=== PATIENT | female | born 1960 | race Caucasian/White ===

== ENCOUNTER 2016-07-03 07:51 | Emergency (ER) | payer MEDICARE ==
[~2016-07-03 07:51] MED LIST: ATARAX25 MG PO; ATENOLOL50 MG; ATIVAN1 MG PO; AUGMENTIN 875 M1 TA1 PO; BACTRIM DS 8001 TA1 PO; BACTRIM DS 8001 TAB; BACTROBAN2% TP; BACTROBAN21; CALCIUM500 MG; CIPRO500 MG PO; CLARITIN10 MG; CLINDAMYCIN HC300 MG PO; COLCHICINE0.6 MG PO; DARVOCET N 1001 TAB PO; FLEXERIL10 MG; GLIPIZIDE5 MG; IMITREX50 MG; KCL; LANTUS SOLOS100 U/M1; LASIX40 MG; METFORMIN1000 MG; MOTRIN800 MG; NAPROSYN500 MG PO; ORPHENADRINE C100 M1 PO; PEPCID20 MG; SILVADENE1%; TORADOL10 MG PO; ULTRAM50 MG; XANAX0.5 MG; ZOLOFT50 MG
[2016-07-03] MEDS ORDERED: KEFLEX500 M1 PO (09:05)
== END 2016-07-03 09:01 | disposition home or self-care (01) ==
LOC: ED 07:51
DX: S81.812A Laceration without foreign body, left lower leg, initial encounter (principal); Z98.890 Other specified postprocedural states; Z98.51 Tubal ligation status; Z88.2 Allergy status to sulfonamides; Z88.6 Allergy status to analgesic agent; Z88.1 Allergy status to other antibiotic agents; Z88.4 Allergy status to anesthetic agent; W01.198A Fall on same level from slipping, tripping and stumbling with subsequent striking against other object, initial encounter; Y93.89 Activity, other specified; Y92.89 Other specified places as the place of occurrence of the external cause; Y99.9 Unspecified external cause status

== ENCOUNTER → 2016-09-09 | Outpatient (CLI) | payer MEDICARE ==
[~2016-09-09] MED LIST changes: +KEFLEX500 M1 PO
== END | disposition home or self-care (01) ==
LOC: LAB 16:54
DX: D64.9 Anemia, unspecified (principal)

== ENCOUNTER 2016-11-19 16:27 | Emergency (ER) | payer MEDICARE ==
[~2016-11-19] VITALS: Ht 167.6 cm; Wt 140.2 kg
[~2016-11-19 16:27] MED LIST changes: -CLARITIN10 MG; +CLARITIN10 MG PO; -IMITREX50 MG; +IMITREX50 MG PO; -LANTUS SOLOS100 U/M1; +LANTUS SOLOS100 U/M1 SQ; -LASIX40 MG; +LASIX40 MG PO; -METFORMIN1000 MG; +METFORMIN1000 MG PO; -PEPCID20 MG; +PEPCID20 MG PO; -ULTRAM50 MG; +ULTRAM50 MG PO
[2016-11-19] MEDS ORDERED: SEPTRA DS 800 M1 TAB PO (16:35)
[2016-11-19] MEDS ORDERED: BACTRIM DS 8001 TA1 PO (17:19)
== END 2016-11-19 17:40 | disposition home or self-care (01) ==
LOC: ED 16:27
DX: L02.01 Cutaneous abscess of face (principal); L03.211 Cellulitis of face; Z98.890 Other specified postprocedural states; Z98.51 Tubal ligation status; Z79.899 Other long term (current) drug therapy; Z88.2 Allergy status to sulfonamides; Z88.6 Allergy status to analgesic agent; Z88.1 Allergy status to other antibiotic agents; Z88.8 Allergy status to other drugs, medicaments and biological substances; Z86.14 Personal history of Methicillin resistant Staphylococcus aureus infection

== ENCOUNTER 2016-11-21 13:28 | Inpatient (IN) | payer MEDICARE ==
[~2016-11-21] VITALS: Ht 167.6 cm; Wt 145.6 kg
--- NOTE | ~2016-11-21 | CON ---
[place], [place] REPORT OF CONSULTATION [id number] #: [id number] ROOM: 424 DOCTOR: UBALDO STAPLETON,SEPTEMBER BIRTHDATE: [birth year] DOS: 11/21/2016 HISTORY OF PRESENT ILLNESS: The patient is a 56-year-old morbidly obese female who was admitted with lip and facial swelling as well as abscess of the left posterior upper thigh. She has attempted to pick at her skin. She has had other recurrent abscesses. In July, she had abscess of her left arm I and D'ed by her family doctor. Cultures are in the systems and grew MRSA. She has already had an MRSA swab of her nares. Blood cultures are pending. Wound culture was obtained from the face, that is pending. She denies any fevers or chills. Just swelling, pain and redness of her lower lip, especially on the left down to the chin. Over the last 3 days, it has been progressively worsening. They did give her Bactrim for that, which has been ineffective. PAST MEDICAL HISTORY: As above as well as morbid obesity, hypertension, diabetes, Achilles tendon repair, tubal ligation. SOCIAL HISTORY: Nonsmoker, nondrinker, no illicit drug use. Lives alone. FAMILY MEDICAL HISTORY: Father at the age of 55 from lung cancer. Mother with cardiac aneurysm at the age of 45. ALLERGIES: Listed includes SULFA, ASPIRIN, CODEINE, INSULIN, VICTOZA, AVELOX, PREDNISONE, PROPRANOLOL. CURRENT MEDICATIONS: Include vancomycin, Unasyn, Dulcolax. Clindamycin was stopped. LABORATORY DATA: Show lactic acid 1.8. WBC is 11.0. BUN 15, creatinine 0.81. AST 53, ALT 69, lactic acid 2.4, glucose 339. REVIEW OF SYSTEMS: As above in history of present illness. Again, she has some chronic skin picking for years. No cough or shortness of breath. No rash or itch. No recent fevers or shaking chills. No edema. She is morbidly obese, diabetic. Further review of systems is unremarkable. PHYSICAL EXAMINATION: VITAL SIGNS: Temperature 98.4, pulse 72, respirations 16, BP 136/74. GENERAL: A 56-year-old morbidly obese female in no acute distress. HEAD, EYES, EARS, NOSE AND THROAT: Normocephalic. No thrush. She wears upper and lower dentures and has been having no issues with her gums. LUNGS: Clear to auscultation bilaterally. Respirations even and unlabored. HEART: Regular rhythm. No murmur appreciated. ABDOMEN: Soft, obese, nontender. EXTREMITIES: No edema, deformity or cyanosis. SKIN: Multiple areas where she picks. Left upper posterior thigh, she has a small abscess, redness, induration. She also has cellulitic/abscess area of the lower lip, primarily on the left, which extends down to her chin. No open area. Significant tenderness. [place], [place] REPORT OF CONSULTATION NAME: LAWSON REYES UNIT #: [id number] ROOM: [facility] DOCTOR: UBALDO STAPLETONSEPTEMBER BIRTHDATE: [birth year] ASSESSMENT: Recurrent skin abscesses with Methicillin-resistant Staphylococcus aureus with now facial abscess and a left posterior upper thigh abscess. PLAN: I discussed with her methods for decolonization including Bactroban to her nares 3 times a day for 1 week out of each month for 3 months, showering with liquid antibacterial soaps. She needs to stop picking, but it is especially imperative for her to decolonize with that habit. No loofahs, no bath brushes, no sponges, fresh washed cloth and towel with each shower, not rewearing any of her clothes, changing her bed linen twice a week, etc. We discussed pathogenesis of MRSA. Stop the Unasyn, continue the vancomycin. Case discussed with Dr. Devyn Yuan. SEPTEMBER DAYA CONNER DEVYN YUAN MD CM:CONSTR:REPORT OF CONSULTATION 30 11/22/16 3607 interface
--- NOTE | ~2016-11-21 | CON ---
[place], [place] REPORT OF CONSULTATION NAME: LAWSON REYES UNIT #: [id number] ROOM: 424 DOCTOR: SRAVANI TRENTKIRK BIRTHDATE: [birth year] DOS: 11/25/2016 LOCATION: Room 4241. The patient is on the hospice service. ADMITTING PHYSICIAN: Ashley Roldan CNP REASON FOR CONSULTATION: Facial cellulitis. HISTORY OF PRESENT ILLNESS: The patient is a 56-year-old do white female who was admitted to [facility] approximately 1 week ago because of lip and facial swelling in area of the chin. She also had some evidence of infection in the left posterior upper. Thigh. The patient has a history of recurrent MRSA and frequently picks at her skin. Cultures have demonstrated methicillin-resistant Staphylococcus aureus and the patient has been treated with IV vancomycin. She is clinically improving and her white blood cell count has normalized. I have been asked to evaluate the patient because of the infection and swelling involving the lower lip and chin. PAST MEDICAL HISTORY: Hypertension, diabetes mellitus, morbid obesity. PAST SURGICAL HISTORY: Tubal ligation, Achilles tendon repair. CURRENT MEDICATIONS: Vitamin D, vitamin B12, IV vancomycin, potassium, Claritin, Lasix, ferrous sulfate, Pepcid, Lovenox, Os-Odilon, Tenormin, Bactroban ointment, Mobic, insulin, Flexeril, Xanax, Ultram. ALLERGIES: CODEINE, ASPIRIN, PREDNISONE, TRIMETHOPRIM, PROPRANOLOL. PHYSICAL EXAMINATION: GENERAL: The patient was examined at the bedside. VITAL SIGNS: She is afebrile. Temperature 98.3 oral, pulse 111, respiratory rate 20, blood pressure 122/60. HEENT: The ears are clear. Nose shows no mucopurulence. The oral cavity and oropharynx are unremarkable. Examination of lower lip and left lateral chain shows some excoriated skin consistent with recent cellulitis. There is no drainable fluid collection. The patient's infection appears to be responding to the IV vancomycin. There is still mild tenderness. IMPRESSION: Methicillin-resistant Staphylococcus aureus cellulitis of face. RECOMMENDATIONS: Continue IV vancomycin, continue application of Bactroban ointment to facial infection twice daily. There is no need for surgical intervention on this patient. [place], [place] REPORT OF CONSULTATION NAME: JOSIANELAWSON PATTEN UNIT #: [id number] ROOM: 424 DOCTOR: KIRK LASSITER MD BIRTHDATE: [birth year] KIRK LASSITER MD CM:CONSTR:REPORT OF CONSULTATION 1527 11/25/16 1648 interface
--- NOTE | ~2016-11-21 | PR ---
[place], [place] PROGRESS NOTE NAME: LAWSON REYES [facility] #: [id number] UNIT #: [id number] ROOM: 424 DOCTOR: UBALDO STAPLETON,SEPTEMBER BIRTHDATE: [birth year] DOS: SUBJECTIVE: The patient is being followed for facial abscess on her lower lip, which extends to her chin. She was seen by Dr. Lovell, who would prefer that an ENT be consulted for an I and D of the abscess. She also has one on her left upper posterior thigh. The patient has skin picking disorder and has been picking at both of them; however, they do still appear to need to be lanced. She is currently on IV vancomycin, which she is tolerating without issue. Denies fevers, chills, nausea, vomiting or diarrhea. No rash or itch. No cough or shortness of breath. CURRENT MEDICATIONS: Include vancomycin, potassium, Claritin, Lasix, Feosol, Pepcid, Lovenox, Os-Odilon, Tenormin, Bactroban to her nose, Mobic, Humalog, Levemir, Lexapro, Flexeril, Xanax, Ultram, Imitrex and Zofran. LABORATORY DATA: Yesterday, WBCs were down to 10, platelets 287. Yesterday, BUN 12, creatinine 0.68. Her hemoglobin A1c is 9.9. Vancomycin trough is 15.2. MRSA screen of the nares was positive as was the abscess cultures from the chin. PHYSICAL EXAMINATION: VITAL SIGNS: Temperature 97.7, pulse 68, respirations 20, BP 129/80. GENERAL: Alert and oriented 56-year-old morbidly obese female, in no acute distress. HEAD, EYES, EARS, NOSE AND THROAT: Normocephalic, no thrush. Again, she has got erythema, induration and abscess of the lower lip to the left, down to her chin. LUNGS: Clear to auscultation bilaterally. Respirations even and unlabored. HEART: Regular rhythm. No murmur appreciated. ABDOMEN: Soft, obese, nontender. EXTREMITIES: No edema or deformity. Left upper posterior thigh with redness and induration. She has attempted to pick at it, but not very successfully. SKIN: Otherwise, warm, dry, has numerous areas where she has picked at her skin. ASSESSMENT: Methicillin-resistant Staphylococcus aureus abscesses, which have been recurrent, now currently of her lip/chin as well as left upper posterior thigh. An ENT is to see her hopefully for an I and D of the lip/chin abscess. PLAN: Continue the vancomycin. I have discussed with her in detail MRSA de-colonization. She has Bactroban to the nares currently, this is especially important given her skin picking habit and I discussed with the nurses and will began chlorhexidine baths. Case was discussed with Dr. Devyn Yuan. SAHIL DAYA CONNER [place], [place] PROGRESS NOTE NAME: AMYLAWSON UNIT #: [id number] ROOM: [facility] DOCTOR: UBALDO STAPLETON BIRTHDATE: [birth year] DEVYN YUAN MD CM:PNTRANS 1625 [id number] SEPTEMBER UBALDO STAPLETON 11/24/16 0041 interface
--- NOTE | ~2016-11-21 | CON ---
[place], [place] REPORT OF CONSULTATION NAME: LAWSON REYES UNIT #: [id number] ROOM: 424 DOCTOR: LISSY TRENT,DEVYN Sifuentes BIRTHDATE: [birth year] DOS: 11/21/2016 ADDENDUM I agree with the plan as outlined above after reviewing the labs, radiographs and cultures. We will make adjustments accordingly and follow the patient up clinically. DEVYN YUAN MD CM:CONSTR:REPORT OF CONSULTATION 1739 11/24/16 1253 interface
--- NOTE | ~2016-11-21 | PR ---
[place], [place] PROGRESS NOTE NAME: LAWSON REYES UNIT #: [id number] ROOM: 424 DOCTOR: LISSY TRENT,DEVYN Sifuentes BIRTHDATE: [birth year] DOS: 11/23/2016 ADDENDUM: I agree with above plans as described. We will follow the patient up clinically and make appropriate adjustments accordingly. DEVYN YUAN MD CM:PNTRANS [id number] DEVYN YUAN MD 11/23/16 1852 interface
[~2016-11-21 13:28] MED LIST changes: +SEPTRA DS 800 M1 TAB PO
[2016-11-21 13:42] VITALS: BP 142/73
[2016-11-21] MEDS ORDERED: FEROSUL325 MG PO (13:43)
[2016-11-21 14:36] LABS: BASO % 0.4 % (0.0-1.0); EOS # 0.2 10*3/uL (0.0-0.4); EOS % 1.9 % (1.0-4.0); HEMATOCRIT 39.5 % (37.0-47.0); HEMOGLOBIN 12.8 g/dl (12.0-16.0); LYMPH # 2.5 10*3/uL (1.3-4.4); LYMPH % 22.3 % (27.0-41.0); MEAN CELL VOLUME 93.8 fl (81.0-99.0); MEAN CORPUSCULAR HGB 30.4 pg (27.0-31.0); MEAN CORPUSCULAR HGB CONC 32.4 g/dl (33.0-37.0); MEAN PLATELET VOLUME 10.2 fl (9.6-12.3); MONO # 0.6 10*3/uL (0.1-1.0); MONO % 5.7 % (3.0-9.0); NEUT # 7.6 10*3/uL (2.3-7.9); NEUT % 69.3 % (47.0-73.0); PLATELET COUNT AUTOMATED 276 10*3/uL (130-400); RED BLOOD COUNT 4.21 10*6/uL (4.10-5.10); RED CELL DISTRI WIDTH 12.9 % (0-14.5)
[2016-11-21 14:52] LABS: ALBUMIN 2.8 gm/dl (3.1-4.5); ALKALINE PHOSPHATASE 104 U/L (45-117); BILIRUBIN, TOTAL 0.4 mg/dl (0.2-1.0); BUN 15 mg/dl (7-24); CARBON DIOXIDE 24 mmol/L (21-32); CHLORIDE 104 mmol/L (98-107); EST GLOM FILT AFRICAN AMERICAN > 60 ml/min; GLUCOSE 339 mg/dL (65-99); POTASSIUM 4.6 mmol/L (3.5-5.1); SGOT/AST 53 IU/L (3-35); SGPT/ALT 69 U/L (12-78); SODIUM 137 mmol/L (136-145); TOTAL PROTEIN 7.6 gm/dL (6.4-8.2)
[2016-11-21 15:06] VITALS: BP 132/72
[2016-11-21 16:22] VITALS: BP 136/74
[2016-11-21 16:29] LABS: LA>2 REFLEX 2 HR DRAW NOW
[2016-11-21] MEDS ORDERED: XANAX1 MG PO (17:26)
[2016-11-21] MEDS ORDERED: TENORMIN50 MG PO (17:27)
[2016-11-21] MEDS ORDERED: MOBIC7.5 MG PO (17:28)
[2016-11-21] MEDS ORDERED: LEXAPRO10 MG PO (17:28)
[2016-11-21] MEDS ORDERED: OYSTER SHELL C1 EAC3 PO (17:30)
[2016-11-21] MEDS ORDERED: CYCLOBENZAPRINE10 MG PO (17:31)
[2016-11-21] MEDS ORDERED: POTASSIUM CHLO10 ME4 PO (17:40)
[2016-11-21] MEDS ORDERED: GLIPIZIDE10 M2 PO (17:42)
[2016-11-21 20:00] VITALS: BP 137/81
[2016-11-22] VITALS: BP 143/90
[2016-11-22 05:58] LABS: BASO # 0.1 10*3/uL (0.0-0.1); BASO % 0.6 % (0.0-1.0); EOS # 0.3 10*3/uL (0.0-0.4); EOS % 3.1 % (1.0-4.0); HEMATOCRIT 38.1 % (37.0-47.0); LYMPH # 3.3 10*3/uL (1.3-4.4); LYMPH % 32.8 % (27.0-41.0); MEAN CELL VOLUME 94.5 fl (81.0-99.0); MEAN CORPUSCULAR HGB 29.8 pg (27.0-31.0); MEAN CORPUSCULAR HGB CONC 31.5 g/dl (33.0-37.0); MEAN PLATELET VOLUME 10.8 fl (9.6-12.3); MONO # 0.7 10*3/uL (0.1-1.0); MONO % 7.3 % (3.0-9.0); NEUT # 5.6 10*3/uL (2.3-7.9); NEUT % 55.9 % (47.0-73.0); PLATELET COUNT AUTOMATED 287 10*3/uL (130-400); RED BLOOD COUNT 4.03 10*6/uL (4.10-5.10); RED CELL DISTRI WIDTH 12.8 % (0-14.5)
[2016-11-22 06:00] LABS: HEMOGLOBIN A1c 9.9 % (4.8-5.6)
[2016-11-22 06:16] LABS: ALBUMIN 2.8 gm/dl (3.1-4.5); ALKALINE PHOSPHATASE 100 U/L (45-117); BILIRUBIN, TOTAL 0.2 mg/dl (0.2-1.0); BUN 12 mg/dl (7-24); CARBON DIOXIDE 28 mmol/L (21-32); CHLORIDE 103 mmol/L (98-107); EST GLOM FILT AFRICAN AMERICAN > 60 ml/min; FREE T4 1.21 ng/dl (0.76-1.46); GLUCOSE 204 mg/dL (65-99); PHOSPHOROUS 4.5 mg/dL (2.5-4.9); SGOT/AST 51 IU/L (3-35); SGPT/ALT 61 U/L (12-78); SODIUM 137 mmol/L (136-145); TOTAL PROTEIN 7.3 gm/dL (6.4-8.2)
[2016-11-22 06:18] LABS: PROTHROMBIN TIME 10.6 SECONDS (9.0-12.4)
[2016-11-22 06:24] LABS: VITAMIN D, 25-HYDROXY 22.3 ng/mL (30-100)
[2016-11-22 06:25] LABS: FOLIC ACID 9.6 ng/mL (>5.38)
[2016-11-22 08:00] VITALS: BP 118/64
[2016-11-22 12:00] VITALS: BP 110/61
[2016-11-22 16:00] VITALS: BP 125/90
[2016-11-22 20:00] VITALS: BP 144/69
[2016-11-23] VITALS: BP 98/72
[2016-11-23 08:00] VITALS: BP 118/72; BP 128/72
[2016-11-23 12:00] VITALS: BP 129/80
[2016-11-23 16:00] VITALS: BP 119/70
[2016-11-23 20:00] VITALS: BP 110/91
[2016-11-24 01:43] VITALS: BP 146/88
[2016-11-24 06:17] LABS: BASO # 0.1 10*3/uL (0.0-0.1); BASO % 0.7 % (0.0-1.0); EOS # 0.2 10*3/uL (0.0-0.4); EOS % 2.4 % (1.0-4.0); HEMATOCRIT 39.7 % (37.0-47.0); HEMOGLOBIN 13.2 g/dl (12.0-16.0); LYMPH # 3.6 10*3/uL (1.3-4.4); LYMPH % 37.1 % (27.0-41.0); MEAN CELL VOLUME 90.8 fl (81.0-99.0); MEAN CORPUSCULAR HGB 30.2 pg (27.0-31.0); MEAN CORPUSCULAR HGB CONC 33.2 g/dl (33.0-37.0); MEAN PLATELET VOLUME 10.5 fl (9.6-12.3); MONO # 0.7 10*3/uL (0.1-1.0); MONO % 7.2 % (3.0-9.0); NEUT % 52.3 % (47.0-73.0); PLATELET COUNT AUTOMATED 313 10*3/uL (130-400); RED BLOOD COUNT 4.37 10*6/uL (4.10-5.10); RED CELL DISTRI WIDTH 12.5 % (0-14.5); WHITE BLOOD COUNT 9.6 10*3/uL (4.8-10.8)
[2016-11-24 06:39] LABS: BUN 14 mg/dl (7-24); CARBON DIOXIDE 30 mmol/L (21-32); CHLORIDE 96 mmol/L (98-107); EST GLOM FILT AFRICAN AMERICAN > 60 ml/min; GLUCOSE 322 mg/dL (65-99); POTASSIUM 3.9 mmol/L (3.5-5.1); SODIUM 136 mmol/L (136-145)
[2016-11-24 08:00] VITALS: BP 114/79
[2016-11-24 12:00] VITALS: BP 105/55
[2016-11-24 16:00] VITALS: BP 111/76
[2016-11-24 20:00] VITALS: BP 127/78
[2016-11-25] VITALS: BP 99/43
[2016-11-25 07:59] VITALS: BP 118/56
[2016-11-25 12:00] VITALS: BP 122/60
[2016-11-25] MEDS ORDERED: BACTROBAN NASAL1 GM NS (15:23)
[2016-11-25] MEDS ORDERED: DOXYCYCLINE100 MG PO (15:23)
[2016-11-25] MEDS ORDERED: [UNRECOGNIZED DRUG - CODE] TP (15:25)
[2016-11-25 16:00] VITALS: BP 118/75
[2016-11-25 20:00] VITALS: BP 136/82
[2016-11-26] VITALS: BP 105/76
[2016-11-26 07:24] LABS: BASO # 0.1 10*3/uL (0.0-0.1); BASO % 0.6 % (0.0-1.0); EOS # 0.3 10*3/uL (0.0-0.4); EOS % 3.4 % (1.0-4.0); HEMATOCRIT 37.5 % (37.0-47.0); HEMOGLOBIN 12.4 g/dl (12.0-16.0); LYMPH # 3.3 10*3/uL (1.3-4.4); LYMPH % 41.5 % (27.0-41.0); MEAN CELL VOLUME 93.3 fl (81.0-99.0); MEAN CORPUSCULAR HGB 30.8 pg (27.0-31.0); MEAN CORPUSCULAR HGB CONC 33.1 g/dl (33.0-37.0); MEAN PLATELET VOLUME 10.3 fl (9.6-12.3); MONO # 0.5 10*3/uL (0.1-1.0); NEUT # 3.9 10*3/uL (2.3-7.9); NEUT % 48.3 % (47.0-73.0); NUCLEATED RED BLOOD CELL 0.2 % (0.0-0.0); PLATELET COUNT AUTOMATED 282 10*3/uL (130-400); RED BLOOD COUNT 4.02 10*6/uL (4.10-5.10); RED CELL DISTRI WIDTH 12.5 % (0-14.5)
[2016-11-26 08:00] VITALS: BP 128/72
[2016-11-26 08:21] LABS: BUN 12 mg/dl (7-24); CARBON DIOXIDE 28 mmol/L (21-32); CHLORIDE 98 mmol/L (98-107); EST GLOM FILT AFRICAN AMERICAN > 60 ml/min; GLUCOSE 368 mg/dL (65-99); SODIUM 134 mmol/L (136-145)
== END 2016-11-26 13:29 | disposition home or self-care (01) | DRG 602 ==
LOC: ED 13:28 → 4E 16:39 → EDHOLD 16:39 → 4E 16:45
PROVIDERS: Family Medicine; Hospitalist; Internal Medicine; Physician Assistant
DX: L03.211 Cellulitis of face (principal); E43 Unspecified severe protein-calorie malnutrition; L02.01 Cutaneous abscess of face; Z68.43 Body mass index [BMI] 50.0-59.9, adult; L02.416 Cutaneous abscess of left lower limb; E11.65 Type 2 diabetes mellitus with hyperglycemia; I10 Essential (primary) hypertension; K13.0 Diseases of lips; B95.62 Methicillin resistant Staphylococcus aureus infection as the cause of diseases classified elsewhere; E66.01 Morbid (severe) obesity due to excess calories; E55.9 Vitamin D deficiency, unspecified; Z88.2 Allergy status to sulfonamides; Z88.8 Allergy status to other drugs, medicaments and biological substances; Z88.6 Allergy status to analgesic agent; Z88.5 Allergy status to narcotic agent; Z88.1 Allergy status to other antibiotic agents; Z98.51 Tubal ligation status; Z82.49 Family history of ischemic heart disease and other diseases of the circulatory system; Z85.118 Personal history of other malignant neoplasm of bronchus and lung; Z79.4 Long term (current) use of insulin; Z79.899 Other long term (current) drug therapy

== ENCOUNTER 2017-04-23 22:07 | Emergency (ER) | payer MEDICAID ==
[~2017-04-23] VITALS: Ht 165.1 cm; Wt 158.8 kg
[~2017-04-23 22:07] MED LIST changes: +BACTROBAN NASAL1 GM NS; +CYCLOBENZAPRINE10 MG PO; +DOXYCYCLINE100 MG PO; +FEROSUL325 MG PO; +GLIPIZIDE10 M2 PO; +LEXAPRO10 MG PO; +MOBIC7.5 MG PO; +OYSTER SHELL C1 EAC3 PO; +POTASSIUM CHLO10 ME4 PO; +TENORMIN50 MG PO; +XANAX1 MG PO; +[UNRECOGNIZED DRUG - CODE] TP
[2017-04-23 23:29] LABS: BASO # 0.1 10*3/uL (0.0-0.1); BASO % 0.5 % (0.0-1.0); EOS # 0.2 10*3/uL (0.0-0.4); EOS % 1.9 % (1.0-4.0); HEMATOCRIT 38.7 % (37.0-47.0); LYMPH # 3.4 10*3/uL (1.3-4.4); LYMPH % 32.1 % (27.0-41.0); MEAN CELL VOLUME 91.1 fl (81.0-99.0); MEAN CORPUSCULAR HGB 30.6 pg (27.0-31.0); MEAN CORPUSCULAR HGB CONC 33.6 g/dl (33.0-37.0); MEAN PLATELET VOLUME 10.1 fl (9.6-12.3); MONO # 0.7 10*3/uL (0.1-1.0); MONO % 6.6 % (3.0-9.0); NEUT # 6.2 10*3/uL (2.3-7.9); NEUT % 58.6 % (47.0-73.0); PLATELET COUNT AUTOMATED 292 10*3/uL (130-400); RED BLOOD COUNT 4.25 10*6/uL (4.10-5.10); RED CELL DISTRI WIDTH 12.1 % (0-14.5); WHITE BLOOD COUNT 10.6 10*3/uL (4.8-10.8)
[2017-04-23 23:45] LABS: ALKALINE PHOSPHATASE 103 U/L (45-117); BUN 12 mg/dl (7-24); CHLORIDE 103 mmol/L (98-107); CREATININE 0.83 mg/dL (0.55-1.02); POTASSIUM 4.1 mmol/L (3.5-5.1); SGOT/AST 42 IU/L (3-35); SGPT/ALT 51 U/L (12-78); SODIUM 136 mmol/L (136-145)
[2017-04-24] MEDS ORDERED: CLINDAMYCIN HC300 MG PO (00:16)
== END 2017-04-23 22:43 | disposition home or self-care (01) ==
LOC: ED 22:07
PROVIDERS: Physician Assistant
DX: L03.211 Cellulitis of face (principal); E11.9 Type 2 diabetes mellitus without complications; Z98.51 Tubal ligation status; Z98.890 Other specified postprocedural states; Z79.899 Other long term (current) drug therapy; Z79.4 Long term (current) use of insulin; Z88.6 Allergy status to analgesic agent; Z88.5 Allergy status to narcotic agent; Z88.8 Allergy status to other drugs, medicaments and biological substances

== ENCOUNTER → 2017-06-24 | Outpatient (CLI) | payer MEDICARE, MEDICAID ==
[2017-06-24 16:01] LABS: BASO # 0.1 10*3/uL (0.0-0.1); BASO % 0.7 % (0.0-1.0); EOS # 0.3 10*3/uL (0.0-0.4); EOS % 3.4 % (1.0-4.0); HEMATOCRIT 36.4 % (37.0-47.0); HEMOGLOBIN 12.2 g/dl (12.0-16.0); LYMPH # 2.5 10*3/uL (1.3-4.4); LYMPH % 32.3 % (27.0-41.0); MEAN CELL VOLUME 92.4 fl (81.0-99.0); MEAN CORPUSCULAR HGB CONC 33.5 g/dl (33.0-37.0); MEAN PLATELET VOLUME 10.8 fl (9.6-12.3); MONO # 0.4 10*3/uL (0.1-1.0); NEUT # 4.5 10*3/uL (2.3-7.9); NEUT % 58.2 % (47.0-73.0); PLATELET COUNT AUTOMATED 235 10*3/uL (130-400); RED BLOOD COUNT 3.94 10*6/uL (4.10-5.10); RED CELL DISTRI WIDTH 12.2 % (0-14.5); WHITE BLOOD COUNT 7.7 10*3/uL (4.8-10.8)
[2017-06-24 16:18] LABS: ALBUMIN 2.7 gm/dl (3.1-4.5); ALKALINE PHOSPHATASE 97 U/L (45-117); BUN 12 mg/dl (7-24); CHLORIDE 100 mmol/L (98-107); CREATININE 0.76 mg/dL (0.55-1.02); POTASSIUM 3.7 mmol/L (3.5-5.1); SGOT/AST 36 IU/L (3-35); SGPT/ALT 46 U/L (12-78); SODIUM 136 mmol/L (136-145)
== END | disposition home or self-care (01) ==
LOC: MRI 14:00 → LAB 14:15 → MRI 14:15
PROVIDERS: Internal Medicine
DX: M47.896 Other spondylosis, lumbar region (principal); M47.897 Other spondylosis, lumbosacral region; M51.26 Other intervertebral disc displacement, lumbar region; E78.2 Mixed hyperlipidemia; E03.9 Hypothyroidism, unspecified; E11.42 Type 2 diabetes mellitus with diabetic polyneuropathy; M54.2 Cervicalgia

== ENCOUNTER 2017-07-07 20:29 | Inpatient (IN) | payer MEDICARE, MEDICAID ==
[~2017-07-07] VITALS: Ht 167.6 cm; Wt 138.3 kg
--- NOTE | ~2017-07-07 | PROC NOTE ---
[place], [place] PROCEDURE NOTE NAME: LAWSON REYES [facility] #: [id number] UNIT #: [id number] ROOM: 531 DOCTOR: AVELINO LANGLEY MD BIRTHDATE: [birth year] DOS: 07/08/2017 PREOPERATIVE DIAGNOSIS: Right neck abscess. POSTOPERATIVE DIAGNOSIS: Right neck abscess. PROCEDURE: Incision and drainage of right neck abscess. SURGEON: Avelino Langley MD BOTTLE TESTER: DONNA. ANESTHESIA: Local (1% plain lidocaine). INDICATIONS: This is a 57-year-old lady with a history of an abscess in the right neck, was here for the above-mentioned procedure. The procedure and its complications were explained to the patient in detail preoperatively. Complications that were discussed included but were not limited to bleeding, infection, hematoma/seroma/abscess formation, prolonged postoperative pain, and damage to underlying vital structures. She agreed to proceed. DESCRIPTION OF PROCEDURE: After identifying the patient, the patient was brought to the operating suite and laid in the supine position. After time-out procedure was called, the parts were painted and draped in the usual sterile fashion and local anesthesia was infiltrated over the abscess cavity. The incision was made and the abscess cavity was entered and approximately 2 to 3 mL of pus was aspirated. The specimen was sent for culture and sensitivity. Thereafter, the abscess cavity was irrigated and packed with quarter inch iodoform and a dressing was placed. The patient tolerated the procedure well and was taken to the recovery room in a stable fashion. Dr. Avelino Langley, the attending surgeon, was present throughout the operating case. Avelino Langley MD CM:PROCNOTE:PROCEDURE NOTE [phone] AVELINO LANGLEY MD
[2017-07-07 20:36] VITALS: BP 134/80
[2017-07-07 21:30] LABS: BASO # 0.1 10*3/uL (0.0-0.1); BASO % 0.4 % (0.0-1.0); EOS # 0.1 10*3/uL (0.0-0.4); HEMATOCRIT 41.8 % (37.0-47.0); LYMPH # 2.9 10*3/uL (1.3-4.4); LYMPH % 21.3 % (27.0-41.0); MEAN CELL VOLUME 91.7 fl (81.0-99.0); MEAN CORPUSCULAR HGB 30.7 pg (27.0-31.0); MEAN CORPUSCULAR HGB CONC 33.5 g/dl (33.0-37.0); MEAN PLATELET VOLUME 10.7 fl (9.6-12.3); MONO # 0.7 10*3/uL (0.1-1.0); MONO % 4.8 % (3.0-9.0); NEUT # 9.9 10*3/uL (2.3-7.9); NEUT % 72.2 % (47.0-73.0); PLATELET COUNT AUTOMATED 279 10*3/uL (130-400); RED BLOOD COUNT 4.56 10*6/uL (4.10-5.10); RED CELL DISTRI WIDTH 12.4 % (0-14.5); WHITE BLOOD COUNT 13.7 10*3/uL (4.8-10.8)
[2017-07-07 21:46] LABS: ALKALINE PHOSPHATASE 114 U/L (45-117); BUN 10 mg/dl (7-24); CHLORIDE 99 mmol/L (98-107); CREATININE 0.94 mg/dL (0.55-1.02); POTASSIUM 4.2 mmol/L (3.5-5.1); SGOT/AST 35 IU/L (3-35); SGPT/ALT 55 U/L (12-78); SODIUM 131 mmol/L (136-145); TOTAL PROTEIN 8.2 gm/dL (6.4-8.2)
[2017-07-07] MEDS ORDERED: Motrin,Rufen800 MG PO (23:29)
[2017-07-07] MEDS ORDERED: IMITREX50 MG PO (23:30)
[2017-07-07] MEDS ORDERED: KLONOPIN1 M1 PO (23:35)
[2017-07-07] MEDS ORDERED: TRAD5TAB1 PO (23:36)
[2017-07-08] VITALS (7 sets, daily range): BP systolic 106–128; BP diastolic 56–85
[2017-07-08 06:21] LABS: BASO # 0.1 10*3/uL (0.0-0.1); BASO % 0.4 % (0.0-1.0); EOS # 0.3 10*3/uL (0.0-0.4); EOS % 1.9 % (1.0-4.0); HEMATOCRIT 38.8 % (37.0-47.0); HEMOGLOBIN 12.5 g/dl (12.0-16.0); LYMPH # 3.4 10*3/uL (1.3-4.4); LYMPH % 26.1 % (27.0-41.0); MEAN CELL VOLUME 93.9 fl (81.0-99.0); MEAN CORPUSCULAR HGB 30.3 pg (27.0-31.0); MEAN CORPUSCULAR HGB CONC 32.2 g/dl (33.0-37.0); MEAN PLATELET VOLUME 10.7 fl (9.6-12.3); MONO % 7.7 % (3.0-9.0); NEUT # 8.2 10*3/uL (2.3-7.9); NEUT % 63.5 % (47.0-73.0); PLATELET COUNT AUTOMATED 259 10*3/uL (130-400); RED BLOOD COUNT 4.13 10*6/uL (4.10-5.10); RED CELL DISTRI WIDTH 12.7 % (0-14.5); WHITE BLOOD COUNT 12.9 10*3/uL (4.8-10.8)
[2017-07-08 06:27] LABS: ALBUMIN 2.6 gm/dl (3.1-4.5); BUN 11 mg/dl (7-24); CHLORIDE 103 mmol/L (98-107); CHOLESTEROL 170 mg/dL (<200); CREATININE 0.81 mg/dL (0.55-1.02); POTASSIUM 4.1 mmol/L (3.5-5.1); SGOT/AST 26 IU/L (3-35); SGPT/ALT 45 U/L (12-78); SODIUM 137 mmol/L (136-145); TOTAL PROTEIN 7.1 gm/dL (6.4-8.2); TRIGLYCERIDES 113 mg/dl (<150); VLDL CHOLESTEROL 23 mg/dL (6-40)
[2017-07-08 06:34] LABS: ALKALINE PHOSPHATASE 98 U/L (45-117); HDL CHOLESTEROL 37 mg/dl (40-60); LDL CHOLESTEROL 110 mg/dL (9-159)
[2017-07-08 09:55] LABS: VITAMIN D, 25-HYDROXY 10.2 ng/mL (30-100)
[2017-07-08 16:27] LABS: BILIRUBIN NEGATIVE (NEGATIVE); BLOOD NEGATIVE (NEGATIVE); CLARITY CLEAR (CLEAR); COLOR YELLOW (YELLOW); GLUCOSE 3+ (NEGATIVE); KETONE NEGATIVE (NEGATIVE); LEUKO ESTERASE NEGATIVE (NEGATIVE); NITRITE NEGATIVE (NEGATIVE); PH 6.5 (5.0-9.0); UROBILINOGEN 0.2 E.U./dl (0.2-1.0)
[2017-07-08 16:37] LABS: EPITHELIAL CELLS 30-35; RBC 0-2 rbc/hpf (0-2); WBC 0-2 wbc/hpf (0-5)
[2017-07-08 16:38] LABS: BACTERIA TRACE
[2017-07-09 00:19] VITALS: BP 127/76
[2017-07-09 06:40] LABS: BASO % 0.5 % (0.0-1.0); EOS # 0.3 10*3/uL (0.0-0.4); EOS % 2.8 % (1.0-4.0); HEMATOCRIT 36.2 % (37.0-47.0); HEMOGLOBIN 11.8 g/dl (12.0-16.0); LYMPH # 2.9 10*3/uL (1.3-4.4); LYMPH % 32.5 % (27.0-41.0); MEAN CELL VOLUME 93.8 fl (81.0-99.0); MEAN CORPUSCULAR HGB 30.6 pg (27.0-31.0); MEAN CORPUSCULAR HGB CONC 32.6 g/dl (33.0-37.0); MEAN PLATELET VOLUME 10.6 fl (9.6-12.3); MONO # 0.6 10*3/uL (0.1-1.0); MONO % 6.5 % (3.0-9.0); NEUT # 5.1 10*3/uL (2.3-7.9); NEUT % 57.5 % (47.0-73.0); PLATELET COUNT AUTOMATED 230 10*3/uL (130-400); RED BLOOD COUNT 3.86 10*6/uL (4.10-5.10); RED CELL DISTRI WIDTH 12.5 % (0-14.5); WHITE BLOOD COUNT 8.8 10*3/uL (4.8-10.8)
[2017-07-09 06:53] LABS: BUN 10 mg/dl (7-24); CHLORIDE 104 mmol/L (98-107); CREATININE 0.75 mg/dL (0.55-1.02); SODIUM 138 mmol/L (136-145)
[2017-07-09 08:00] VITALS: BP 104/58
[2017-07-09 12:00] VITALS: BP 110/64
[2017-07-09 16:00] VITALS: BP 126/70
[2017-07-09] MEDS ORDERED: TOPAMAX25 M3 PO (20:57)
[2017-07-09] MEDS ORDERED: SYNTHROID25 MCG PO (21:00)
[2017-07-09 21:20] VITALS: BP 112/71
[2017-07-10] VITALS: BP 134/62
[2017-07-10 06:44] LABS: BASO % 0.5 % (0.0-1.0); EOS # 0.2 10*3/uL (0.0-0.4); EOS % 2.8 % (1.0-4.0); HEMATOCRIT 37.1 % (37.0-47.0); LYMPH % 38.7 % (27.0-41.0); MEAN CELL VOLUME 93.7 fl (81.0-99.0); MEAN CORPUSCULAR HGB 30.3 pg (27.0-31.0); MEAN CORPUSCULAR HGB CONC 32.3 g/dl (33.0-37.0); MONO # 0.6 10*3/uL (0.1-1.0); MONO % 7.2 % (3.0-9.0); NEUT % 50.5 % (47.0-73.0); PLATELET COUNT AUTOMATED 250 10*3/uL (130-400); RED BLOOD COUNT 3.96 10*6/uL (4.10-5.10); RED CELL DISTRI WIDTH 12.4 % (0-14.5); WHITE BLOOD COUNT 7.8 10*3/uL (4.8-10.8)
[2017-07-10 07:55] VITALS: BP 149/79
[2017-07-10 08:41] LABS: BUN 11 mg/dl (7-24); CHLORIDE 103 mmol/L (98-107); CREATININE 0.66 mg/dL (0.55-1.02); POTASSIUM 4.1 mmol/L (3.5-5.1); SODIUM 135 mmol/L (136-145)
[2017-07-10 11:28] VITALS: BP 114/64
[2017-07-10 18:00] VITALS: BP 126/66
[2017-07-10 20:00] VITALS: BP 129/81
[2017-07-11] VITALS: BP 128/66
[2017-07-11 08:00] VITALS: BP 120/64
[2017-07-11] MEDS ORDERED: Bactroban Oint22 GM T (13:30)
[2017-07-11] MEDS ORDERED: ANTISEPTIC SKI237 ML T (13:30)
[2017-07-11] MEDS ORDERED: SEPTDS PO (13:30)
[2017-07-11] MEDS ORDERED: NATURE'S BLEND F1 MG PO (13:33)
[2017-07-11] MEDS ORDERED: VITAMIN D-32000 UNIT PO (13:33)
[2017-07-11] MEDS ORDERED: LEVEMIR100 UNIT/1 SC (13:33)
[2017-07-11] MEDS ORDERED: LISINOPRIL5 MG PO (13:57)
[2017-07-11 16:00] VITALS: BP 97/52
== END 2017-07-11 17:51 | disposition home or self-care (01) | DRG 854 ==
LOC: ED 20:29 → EDHOLD 21:41 → 5E 22:08
PROVIDERS: Emergency Medicine Emergency Medical Services; Hospitalist; Internal Medicine Hospice and Palliative Medicine
PROC: 0W960ZZ Drainage of Neck, Open Approach (ICD-10-PCS; principal; 2017-07-08)
DX: A41.9 Sepsis, unspecified organism (principal); E87.2 Acidosis; E44.0 Moderate protein-calorie malnutrition; E11.65 Type 2 diabetes mellitus with hyperglycemia; E66.01 Morbid (severe) obesity due to excess calories; E87.1 Hypo-osmolality and hyponatremia; L03.221 Cellulitis of neck; L02.11 Cutaneous abscess of neck; Z68.42 Body mass index [BMI] 45.0-49.9, adult; I10 Essential (primary) hypertension; E53.8 Deficiency of other specified B group vitamins; B95.62 Methicillin resistant Staphylococcus aureus infection as the cause of diseases classified elsewhere; D64.9 Anemia, unspecified; R65.20 Severe sepsis without septic shock; F42.4 Excoriation (skin-picking) disorder; E55.9 Vitamin D deficiency, unspecified; Z79.4 Long term (current) use of insulin; Z79.899 Other long term (current) drug therapy; Z98.51 Tubal ligation status; Z88.6 Allergy status to analgesic agent; Z88.1 Allergy status to other antibiotic agents; Z88.5 Allergy status to narcotic agent; Z88.8 Allergy status to other drugs, medicaments and biological substances; Z80.1 Family history of malignant neoplasm of trachea, bronchus and lung; Z82.49 Family history of ischemic heart disease and other diseases of the circulatory system

== ENCOUNTER → 2017-08-04 | Outpatient (CLI) | payer MEDICARE, MEDICAID ==
[~2017-08-04] MED LIST changes: +ANTISEPTIC SKI237 ML T; +Bactroban Oint22 GM T; +KLONOPIN1 M1 PO; +LEVEMIR100 UNIT/1 SC; +LISINOPRIL5 MG PO; +Motrin,Rufen800 MG PO; +NATURE'S BLEND F1 MG PO; +SEPTDS PO; +SYNTHROID25 MCG PO; +TOPAMAX25 M3 PO; +TRAD5TAB1 PO; +VITAMIN D-32000 UNIT PO
== END | disposition home or self-care (01) ==
LOC: MAMMO 07-23 10:00
DX: Z12.31 Encounter for screening mammogram for malignant neoplasm of breast (principal)

== ENCOUNTER → 2017-09-22 | Outpatient (CLI) | payer MEDICARE, MEDICAID ==
[~2017-09-22] MED LIST changes: +LANTUS SOL100 UNIT/1 SC
--- NOTE | ~2017-09-22 | ST ---
[place], [place] EXERCISE STRESS TEST REPORT [id number] #: [id number] ROOM: DOCTOR: REVA LUI MD BIRTHDATE: [birth year] DOS: 09/22/2017 PHARMACOLOGIC STRESS TEST INDICATIONS: Chest pain. PROCEDURE: The patient was given a rapid infusion of 0.4 mg regadenoson intravenously followed by a saline flush. She experienced some burning at the injection site, but denied any respiratory or GI symptoms. Her resting electrocardiogram showed sinus rhythm with poor precordial R-wave progression, but no other acute changes. With the infusion, she had a normal increase in heart rate from 92-102 beats per minute, blood pressure fell from 120/64-104/60. No ST or T-wave changes were seen. Forty seconds after the infusion of regadenoson, she was given radionuclide intravenously. IMPRESSION: 1. Well tolerated infusion of regadenoson. 2. Radionuclide injected. Please see the separate imaging report for further details of the patient's stress test results. REVA LUI MD CM:STRESS:EXERCISE STRESS TEST REPORT [id number] REVA LUI MD
== END | disposition home or self-care (01) ==
LOC: CARD 03:41
DX: R07.89 Other chest pain (principal)

== ENCOUNTER → 2017-11-19 | Outpatient (CLI) | payer MEDICARE, MEDICAID ==
[~2017-11-19] MED LIST changes: +GLUCOPHAGE500 MG PO; +TRULICITY0.75 MG/0. SC; +ZESTRIL,PRINIVIL5 MG PO
== END | disposition home or self-care (01) ==
LOC: CARD 02:47
DX: R07.2 Precordial pain (principal); R89.9 Unspecified abnormal finding in specimens from other organs, systems and tissues

== ENCOUNTER → 2019-04-26 | Outpatient (CLI) | payer OTHER, MEDICAID ==
[~2019-04-26] MED LIST changes: +ANAPROX DS550 MG PO
[2019-04-26 15:15] LABS: BASO % 0.6 % (0.0-1.0); EOS # 0.2 10*3/uL (0.0-0.4); EOS % 2.9 % (1.0-4.0); HEMATOCRIT 40.7 % (37.0-47.0); HEMOGLOBIN 12.7 g/dl (12.0-16.0); LYMPH # 1.7 10*3/uL (1.3-4.4); LYMPH % 27.9 % (27.0-41.0); MEAN CELL VOLUME 100.7 fl (81.0-99.0); MEAN CORPUSCULAR HGB 31.4 pg (27.0-31.0); MEAN CORPUSCULAR HGB CONC 31.2 g/dl (33.0-37.0); MEAN PLATELET VOLUME 10.9 fl (9.6-12.3); MONO # 0.4 10*3/uL (0.1-1.0); MONO % 6.4 % (3.0-9.0); NEUT # 3.9 10*3/uL (2.3-7.9); NEUT % 61.9 % (47.0-73.0); PLATELET COUNT AUTOMATED 178 10*3/uL (130-400); RED BLOOD COUNT 4.04 10*6/uL (4.10-5.10); WHITE BLOOD COUNT 6.2 10*3/uL (4.8-10.8)
[2019-04-26 15:40] LABS: ALBUMIN 2.8 gm/dl (3.1-4.5); ALKALINE PHOSPHATASE 123 U/L (45-117); BUN 14 mg/dl (7-24); CHLORIDE 108 mmol/L (98-107); POTASSIUM 4.5 mmol/L (3.5-5.1); SGOT/AST 46 IU/L (3-35); SGPT/ALT 48 U/L (12-78); SODIUM 142 mmol/L (136-145); TOTAL PROTEIN 7.5 gm/dL (6.4-8.2)
[2019-04-27 08:09] LABS: HEPATITIS B SURFACE AG Negative (Negative); HEPATITIS C VIRUS ANTIBODY <0.1 s/co (0.0-0.9)
[2019-04-29 00:10] LABS: TB1 Ag VALUE 0.03 IU/mL (.)
== END | disposition home or self-care (01) ==
LOC: LAB 14:50
PROVIDERS: Nurse Practitioner Family; Physician Assistant
DX: L40.9 Psoriasis, unspecified (principal); R74.8 Abnormal levels of other serum enzymes; R53.83 Other fatigue

== ENCOUNTER 2020-04-18 23:09 | Emergency (ER) | payer OTHER, MEDICAID ==
[~2020-04-18] VITALS: Ht 167.6 cm; Wt 148.0 kg
[2020-04-19 02:23] LABS: BASO # 0.1 10*3/uL (0.0-0.1); BASO % 0.6 % (0.0-1.0); EOS # 0.3 10*3/uL (0.0-0.4); EOS % 3.6 % (1.0-4.0); HEMATOCRIT 38.3 % (37.0-47.0); LYMPH % 35.4 % (27.0-41.0); MEAN CELL VOLUME 98.5 fl (81.0-99.0); MEAN CORPUSCULAR HGB 32.1 pg (27.0-31.0); MEAN CORPUSCULAR HGB CONC 32.6 g/dl (33.0-37.0); MEAN PLATELET VOLUME 10.3 fl (9.6-12.3); MONO # 0.8 10*3/uL (0.1-1.0); MONO % 9.8 % (3.0-9.0); NEUT # 4.2 10*3/uL (2.3-7.9); NEUT % 50.4 % (47.0-73.0); PLATELET COUNT AUTOMATED 185 10*3/uL (130-400); RED BLOOD COUNT 3.89 10*6/uL (4.10-5.10); RED CELL DISTRI WIDTH 12.3 % (0-14.5); WHITE BLOOD COUNT 8.3 10*3/uL (4.8-10.8)
== END 2020-04-19 06:18 | disposition home or self-care (01) ==
LOC: ED 23:09
PROVIDERS: Emergency Medicine
DX: I78.8 Other diseases of capillaries (principal); Z79.4 Long term (current) use of insulin; Z79.82 Long term (current) use of aspirin; Z79.899 Other long term (current) drug therapy; Z79.2 Long term (current) use of antibiotics

== ENCOUNTER 2020-06-28 16:16 | Emergency (ER) | payer OTHER, MEDICAID ==
[~2020-06-28] VITALS: Ht 167.6 cm; Wt 145.1 kg
[2020-06-28] MEDS ORDERED: CYCLOBENZAPRINE10 MG PO (16:40)
[2020-06-28] MEDS ORDERED: TYLENOL325 M1 PO (16:40)
[2020-06-28] MEDS ORDERED: NAPROXEN250 MG PO (16:40)
[2020-06-28] MEDS ORDERED: POLYSPORIN OINT15 GM T (17:03)
[2020-06-30] MEDS ORDERED: PERCOCET 5-3251 EACH PO (18:22)
[2020-06-30] MEDS ORDERED: LIDOCAINE PAIN1 EACH T (18:22)
== END 2020-06-28 17:01 | disposition home or self-care (01) ==
LOC: ED 16:16
DX: M54.6 Pain in thoracic spine (principal); I10 Essential (primary) hypertension; E66.01 Morbid (severe) obesity due to excess calories; Z79.899 Other long term (current) drug therapy; Z88.1 Allergy status to other antibiotic agents; Z88.8 Allergy status to other drugs, medicaments and biological substances; Z88.6 Allergy status to analgesic agent

== ENCOUNTER 2020-07-03 14:09 | Inpatient (IN) | payer OTHER, MEDICAID ==
[~2020-07-03] VITALS: Ht 175.2 cm; Wt 139.5 kg
[~2020-07-03 14:09] MED LIST changes: +LIDOCAINE PAIN1 EACH T; +NAPROXEN250 MG PO; +PERCOCET 5-3251 EACH PO; +POLYSPORIN OINT15 GM T; +TYLENOL325 M1 PO
[2020-07-03 14:15] VITALS: BP 116/86
[2020-07-03 15:30] LABS: BASO # 0.1 10*3/uL (0.0-0.1); BASO % 0.4 % (0.0-1.0); EOS # 0.2 10*3/uL (0.0-0.4); EOS % 1.3 % (1.0-4.0); HEMATOCRIT 39.1 % (37.0-47.0); LYMPH % 5.6 % (27.0-41.0); MEAN CELL VOLUME 92.2 fl (81.0-99.0); MEAN CORPUSCULAR HGB 30.4 pg (27.0-31.0); MEAN PLATELET VOLUME 10.3 fl (9.6-12.3); MONO # 1.3 10*3/uL (0.1-1.0); MONO % 7.7 % (3.0-9.0); NEUT # 14.5 10*3/uL (2.3-7.9); NEUT % 83.8 % (47.0-73.0); PLATELET COUNT AUTOMATED 216 10*3/uL (130-400); RED BLOOD COUNT 4.24 10*6/uL (4.10-5.10); RED CELL DISTRI WIDTH 12.2 % (0-14.5); WHITE BLOOD COUNT 17.3 10*3/uL (4.8-10.8)
[2020-07-03 15:49] LABS: ALBUMIN 2.1 gm/dl (3.1-4.5); ALKALINE PHOSPHATASE 219 U/L (45-117); BUN 16 mg/dl (7-24); CHLORIDE 103 mmol/L (98-107); CREATININE 1.02 mg/dL (0.55-1.02); SGOT/AST 28 IU/L (3-35); SGPT/ALT 34 U/L (12-78); SODIUM 134 mmol/L (136-145); TOTAL PROTEIN 7.3 gm/dL (6.4-8.2)
[2020-07-03 15:51] LABS: TROPONIN I < 0.015 ng/ml (<0.045)
[2020-07-03 17:04] VITALS: BP 136/62
[2020-07-03 17:05] LABS: BILIRUBIN Negative (Negative); BLOOD 3+ (Negative); CLARITY Clear (Clear); COLOR Dark Yellow (Yellow); GLUCOSE 3+ (Negative); KETONE 2+ (Negative); LEUKO ESTERASE Negative (Negative); NITRITE Positive (Negative); SPECIFIC GRAVITY >= 1.030 (1.001-1.030)
[2020-07-03 17:16] LABS: BACTERIA 4+; MUCOUS TRACE; RBC 51-100 rbc/hpf (0-2)
[2020-07-03 18:43] VITALS: BP 131/75
[2020-07-03 19:56] LABS: ARTERIAL BLOOD GAS PH 7.385 (7.35-7.45)
[2020-07-03 19:58] LABS: ABG BASE EXCESS -5.3 mmol/L (-2.0-2.0)
[2020-07-03 21:33] VITALS: BP 133/79
[2020-07-03 23:15] VITALS: BP 118/84
[2020-07-04] VITALS (10 sets, daily range): BP systolic 126–155; BP diastolic 59–95
[2020-07-04 00:24] LABS: URINE AMPHETAMINES < 1000 (1000ng/ml); URINE BARBITURATES < 200 (200ng/ml); URINE BENZODIAZEPINES < 200 (200ng/ml); URINE CANNABINOIDS (THC) < 50 (50ng/ml); URINE COCAINE < 300 (300ng/ml); URINE METHADONE < 300 (300ng/ml); URINE OPIATES < 300 (300ng/ml)
[2020-07-04 00:30] LABS: URINE PHENCYCLIDINE < 25 (25ng/ml)
[2020-07-04 03:38] LABS: ARTERIAL BLOOD GAS PH 7.307 (7.35-7.45)
[2020-07-04 06:01] LABS: ALBUMIN 2.1 gm/dl (3.1-4.5); POTASSIUM 4.3 mmol/L (3.5-5.1)
[2020-07-04 06:12] LABS: CREATININE 1.31 mg/dL (0.55-1.02); FREE T4 1.5 ng/dl (0.76-1.46); TOTAL PROTEIN 7.6 gm/dL (6.4-8.2)
[2020-07-04 06:15] LABS: THYROID STIM HORMONE (HS) 1.05 uIU/ml (0.358-4.75)
[2020-07-04 06:20] LABS: HEMATOCRIT 39.9 % (37.0-47.0); MEAN CELL VOLUME 94.5 fl (81.0-99.0); MEAN CORPUSCULAR HGB 30.6 pg (27.0-31.0); MEAN CORPUSCULAR HGB CONC 32.3 g/dl (33.0-37.0); MEAN PLATELET VOLUME 10.9 fl (9.6-12.3); PLATELET COUNT AUTOMATED 250 10*3/uL (130-400); RED BLOOD COUNT 4.22 10*6/uL (4.10-5.10); RED CELL DISTRI WIDTH 12.6 % (0-14.5)
[2020-07-04 06:24] LABS: ACT PARTIAL THROMBO TIME 37.8 SECONDS (20.0-32.1); INTERNATIONAL NORM RATIO 1.3 (2.0-3.5)
[2020-07-04 06:42] LABS: FERRITIN 360.1 ng/mL (10.0-291.0)
[2020-07-04 07:07] LABS: PLATELET SUFFICIENCY NORMAL (NORMAL); TOTAL CELLS COUNTED 100 #CELLS; TOXIC GRANULATION SLIGHT; VACUOLATION OF NEUTROPHILS SLIGHT
[2020-07-04 07:08] LABS: POLYCHROMASIA SLIGHT
[2020-07-04 08:02] LABS: ABG BASE EXCESS -3.5 mmol/L (-2.0-2.0); ARTERIAL BLOOD GAS PH 7.311 (7.35-7.45)
== END 2020-07-04 19:48 | disposition short-term general hospital (02) | DRG 871 ==
LOC: ED 14:09 → ICCU 19:02 → EDHOLD 19:02 → 4E 19:02 → ICCU 07-04 01:01
PROVIDERS: Emergency Medicine; Hospitalist; Internal Medicine; Internal Medicine Critical Care Medicine; ADMIT Student in an Organized Health Care Education/Training Program; ATTEND Student in an Organized Health Care Education/Training Program
PROC: 5A0935A Assistance with Respiratory Ventilation, Less than 24 Consecutive Hours, High Flow/Velocity Cannula (ICD-10-PCS; 2020-07-03)
PROC: 5A1935Z Respiratory Ventilation, Less than 24 Consecutive Hours (ICD-10-PCS; principal; 2020-07-04)
PROC: 0BH18EZ Insertion of Endotracheal Airway into Trachea, Via Natural or Artificial Opening Endoscopic (ICD-10-PCS; 2020-07-04)
PROC: 03H733Z Insertion of Infusion Device into Right Brachial Artery, Percutaneous Approach (ICD-10-PCS; 2020-07-04)
PROC: B34HZZZ Ultrasonography of Right Upper Extremity Arteries (ICD-10-PCS; 2020-07-04)
PROC: 02HV33Z Insertion of Infusion Device into Superior Vena Cava, Percutaneous Approach (ICD-10-PCS; 2020-07-04)
PROC: B548ZZA Ultrasonography of Superior Vena Cava, Guidance (ICD-10-PCS; 2020-07-04)
DX: A41.89 Other specified sepsis (principal); G93.41 Metabolic encephalopathy; E43 Unspecified severe protein-calorie malnutrition; J96.00 Acute respiratory failure, unspecified whether with hypoxia or hypercapnia; N39.0 Urinary tract infection, site not specified; E87.1 Hypo-osmolality and hyponatremia; J90 Pleural effusion, not elsewhere classified; N17.9 Acute kidney failure, unspecified; Z68.42 Body mass index [BMI] 45.0-49.9, adult; E86.0 Dehydration; Z20.822 Contact with and (suspected) exposure to COVID-19; R31.9 Hematuria, unspecified; E11.65 Type 2 diabetes mellitus with hyperglycemia; E55.9 Vitamin D deficiency, unspecified; N13.9 Obstructive and reflux uropathy, unspecified; K21.9 Gastro-esophageal reflux disease without esophagitis; E66.01 Morbid (severe) obesity due to excess calories; Z80.1 Family history of malignant neoplasm of trachea, bronchus and lung; Z82.49 Family history of ischemic heart disease and other diseases of the circulatory system; Z88.6 Allergy status to analgesic agent; Z88.5 Allergy status to narcotic agent; Z79.4 Long term (current) use of insulin; Z88.8 Allergy status to other drugs, medicaments and biological substances; Z88.1 Allergy status to other antibiotic agents; Z98.51 Tubal ligation status; Z79.899 Other long term (current) drug therapy; Z79.1 Long term (current) use of non-steroidal anti-inflammatories (NSAID)

== ENCOUNTER 2024-09-07 12:11 | Inpatient (IN) | payer OTHER, MEDICAID ==
[~2024-09-07] VITALS: Ht 165.1 cm; Wt 134.3 kg
[2024-09-07 12:15] VITALS: BP 103/49
[2024-09-07] MEDS ORDERED: SODIUM CHLORIDE 0.9% 1,000 ML IV ONE (12:15)
[2024-09-07] MEDS ORDERED: AIRSUPRA 90-810.7 GM INH (12:35)
[2024-09-07] MEDS ORDERED: AMITRIPTYLINE100 M1 PO (12:36)
[2024-09-07] MEDS ORDERED: ATENOLOL50 M1 PO (12:36)
[2024-09-07] MEDS ORDERED: TRULICITY4.5 MG/0.5 SQ (12:37)
[2024-09-07 12:38] LABS: BASO % 0.4 % (0.0-1.0); EOS # 0.2 10*3/uL (0.0-0.4); EOS % 2.1 % (1.0-4.0); HEMATOCRIT 38.6 % (37.0-47.0); MEAN CELL VOLUME 94.1 fl (81.0-99.0); MEAN CORPUSCULAR HGB CONC 32.9 g/dl (33.0-37.0); MEAN PLATELET VOLUME 11.1 fl (9.6-12.3); MONO # 0.7 10*3/uL (0.1-1.0); MONO % 7.9 % (3.0-9.0); NEUT # 5.8 10*3/uL (2.3-7.9); NEUT % 70.5 % (47.0-73.0); PLATELET COUNT AUTOMATED 181 10*3/uL (130-400); RED CELL DISTRI WIDTH 11.9 % (0-14.5); WHITE BLOOD COUNT 8.3 10*3/uL (4.8-10.8)
[2024-09-07] MEDS ORDERED: ATORVASTATIN CA40 M1 PO (12:38)
[2024-09-07] MEDS ORDERED: DICYCLOMINE HYD10 MG PO (12:39)
[2024-09-07] MEDS ORDERED: CALCIPOTRIENE60 G3 T (12:39)
[2024-09-07 12:41] LABS: VENOUS BLOOD GAS O2 SAT 74.4 % (60.0-85.0)
[2024-09-07] MEDS ORDERED: CEFEPIME HCL IN DEXTROSE 5 % 50 ML IV ONE (13:05)
[2024-09-07] MEDS ORDERED: Vancomycin Hydrochloride 250 ML IV ONE ×2 (13:05→16:00)
[2024-09-07] MEDS ORDERED: INSULIN REGULAR, HUMAN 1 UNIT/0.01 ML IV ONE (13:05)
[2024-09-07] MEDS ORDERED: POTASSIUM CHLORIDE 20 MEQ TAB PO ONE (13:15)
[2024-09-07] MEDS ORDERED: DAILY VALUE1 EACH PO (13:16)
[2024-09-07] MEDS ORDERED: COL-RITE100 M1 PO (13:24)
[2024-09-07] MEDS ORDERED: NEURONTIN100 MG PO (13:25)
[2024-09-07] MEDS ORDERED: HYDROXYZINE HCL25 MG PO (13:25)
[2024-09-07] MEDS ORDERED: LACTULOSE20 GM PO (13:26)
[2024-09-07] MEDS ORDERED: LEVOXYL88 MCG PO (13:27)
[2024-09-07] MEDS ORDERED: Zaroxolyn,Diul2.5 MG PO (13:27)
[2024-09-07] MEDS ORDERED: 'CYTOTEC200 MCG PO (13:28)
[2024-09-07] MEDS ORDERED: MONTELUKAST SOD10 MG PO (13:28)
[2024-09-07] MEDS ORDERED: ALDACTONE25 M1 PO (13:29)
[2024-09-07] MEDS ORDERED: FLOMAX0.4 MG PO (13:30)
[2024-09-07] MEDS ORDERED: VENLAFAXINE HY150 M2 PO (13:31)
[2024-09-07] MEDS ORDERED: SSD25 GM T (13:32)
[2024-09-07] MEDS ORDERED: CALMOSEPTINE OI71 GM T (13:32)
[2024-09-07] MEDS ORDERED: LANTUS SOL100 UNIT/1 SC (13:34)
[2024-09-07] MEDS ORDERED: INSULIN AS100 UNIT/2 SQ (13:35)
[2024-09-07] MEDS ORDERED: Iodixanol 320 100 ML VIAL IV ONE (14:05)
[2024-09-07] MEDS ORDERED: SODIUM CHLORIDE 0.9% 500 ML IV ONE (14:15)
[2024-09-07] MEDS ORDERED: Iodixanol 320 100 ML VIAL ONE (14:24)
[2024-09-07] MEDS ORDERED: Magnesium Hydroxide 30 ML UDC PO PRN (14:50)
[2024-09-07] MEDS ORDERED: ACETAMINOPHEN 650 MG SUPP R PRN (14:50)
[2024-09-07] MEDS ORDERED: DEXTROSE 10 % IN WATER 250 ML IV PRN (14:50)
[2024-09-07] MEDS ORDERED: BISACODYL 10 MG SUPP R PRN (14:50)
[2024-09-07] MEDS ORDERED: ACETAMINOPHEN 325 MG TAB PO PRN (14:50)
[2024-09-07] MEDS ORDERED: BISACODYL 5 MG TAB PO PRN (14:50)
[2024-09-07] MEDS ORDERED: Ondansetron Hydrochloride 4 MG/2 ML VIAL IV PRN (14:50)
[2024-09-07] MEDS ORDERED: INSULIN LISPRO 1 UNIT/0.01 ML SQ SCH (16:30)
[2024-09-07 19:36] VITALS: BP 97/42
[2024-09-07 20:27] VITALS: BP 106/42
[2024-09-07 21:25] VITALS: BP 118/75
[2024-09-07] MEDS ORDERED: NYSTATIN 15 GM BOT T SCH (22:00)
[2024-09-07] MEDS ORDERED: Meropenem 50 ML IV SCH (22:00)
[2024-09-08] VITALS: BP 116/69
[2024-09-08] MEDS ORDERED: Ondansetron4 MG PO (00:08)
[2024-09-08] MEDS ORDERED: KLOR-CON M2020 ME1 PO (00:10)
[2024-09-08] MEDS ORDERED: IMITREX50 MG PO (00:24)
[2024-09-08] MEDS ORDERED: HYDROCODONE-AC1 EAC1 PO (00:34)
[2024-09-08] MEDS ORDERED: Acetaminophen/Hydrocodone 5 MG/325 MG TABLET PO PRN (01:00)
[2024-09-08] MEDS ORDERED: Dicyclomine Hydrochloride 10 MG CAP PO PRN (01:00)
[2024-09-08] MEDS ORDERED: METOLAZONE 2.5 MG TAB PO SCH (01:00)
[2024-09-08] MEDS ORDERED: FOAM BANDAGE 1 EACH BANDAGE T ONE (03:14)
[2024-09-08] MEDS ORDERED: LEPTOSPERMUM HONEY 4 X 5 INCH WOUND DRESSING T ONE (03:14)
[2024-09-08] MEDS ORDERED: FOAM BANDAGE HEEL T ONE (03:22)
[2024-09-08] MEDS ORDERED: Levothyroxine Sodium 88 MCG TAB PO SCH (06:00)
[2024-09-08] MEDS ORDERED: Venlafaxine Hydrochloride 75 MG CAP PO SCH (06:00)
[2024-09-08 06:34] LABS: BASO % 0.6 % (0.0-1.0); EOS # 0.2 10*3/uL (0.0-0.4); EOS % 3.4 % (1.0-4.0); HEMATOCRIT 36.6 % (37.0-47.0); MEAN CELL VOLUME 91.5 fl (81.0-99.0); MEAN CORPUSCULAR HGB CONC 33.9 g/dl (33.0-37.0); MONO # 0.6 10*3/uL (0.1-1.0); MONO % 8.4 % (3.0-9.0); NEUT # 4.1 10*3/uL (2.3-7.9); NEUT % 61.5 % (47.0-73.0); PLATELET COUNT AUTOMATED 158 10*3/uL (130-400); WHITE BLOOD COUNT 6.7 10*3/uL (4.8-10.8)
[2024-09-08 06:36] LABS: POTASSIUM 3.1 mmol/L (3.4-5.1); TOTAL PROTEIN 6.8 gm/dL (6.0-8.0)
[2024-09-08] MEDS ORDERED: POTASSIUM CHLORIDE 20 MEQ TAB PO ONE (07:05)
[2024-09-08] MEDS ORDERED: Albuterol Sulfate 2.5 MG/3 ML VIAL NEB SCH (07:10)
[2024-09-08] MEDS ORDERED: BUDESONIDE 0.5 MG AMP NEB SCH (07:10)
[2024-09-08 08:00] VITALS: BP 103/52
[2024-09-08] MEDS ORDERED: Enoxaparin Sodium 40 MG/0.4 ML SYR SC SCH (10:00)
[2024-09-08] MEDS ORDERED: [UNRECOGNIZED DRUG - OTHER] INH SCH (10:00)
[2024-09-08] MEDS ORDERED: Menthol/Zinc Oxide 4 GM THIN T SCH (10:00)
[2024-09-08] MEDS ORDERED: MUPIROCIN 15 GM TUBE T SCH (10:00)
[2024-09-08] MEDS ORDERED: MISOPROSTOL 200 MCG TAB PO SCH (10:00)
[2024-09-08] MEDS ORDERED: SILVER SULFADIAZINE 25 GM TUBE T SCH (10:00)
[2024-09-08] MEDS ORDERED: GABAPENTIN 100 MG CAP PO SCH (10:00)
[2024-09-08] MEDS ORDERED: TOPIRAMATE 25 MG TAB PO SCH (10:00)
[2024-09-08] MEDS ORDERED: SPIRONOLACTONE 25 MG TAB PO SCH (10:00)
[2024-09-08 10:37] LABS: ABG O2 SATURATION 96.4 % (94.0-98.0); ARTERIAL BLOOD GAS PH 7.488 (7.350-7.450); ARTERIAL BLOOD GAS PO2 76.2 mmHg (83.0-108.0)
[2024-09-08 10:39] LABS: ABG BASE EXCESS 4.8 mmol/L (-2.0-3.0)
[2024-09-08] MEDS ORDERED: Albuterol Sulfate 2.5 MG/3 ML VIAL NEB PRN (11:25)
[2024-09-08 12:00] VITALS: BP 99/58
[2024-09-08 16:00] VITALS: BP 108/50
[2024-09-08] MEDS ORDERED: VANCOMYCIN/WATER FOR INJ (PEG) 400 ML IV SCH (16:00)
[2024-09-08 20:00] VITALS: BP 109/53
[2024-09-08] MEDS ORDERED: Amitriptyline Hydrochloride 50 MG TAB PO SCH (21:00)
[2024-09-08] MEDS ORDERED: Tamsulosin Hydrochloride 0.4 MG CAP PO SCH (22:00)
[2024-09-08] MEDS ORDERED: ATORVASTATIN CALCIUM 40 MG TABLET PO SCH (22:00)
[2024-09-08] MEDS ORDERED: Montelukast Sodium 10 MG TAB PO SCH (22:00)
[2024-09-09] VITALS: BP 131/54
[2024-09-09 05:34] LABS: BUN 18 mg/dl (9-23); CHLORIDE 102 mmol/L (98-107); POTASSIUM 3.6 mmol/L (3.4-5.1)
[2024-09-09 06:56] LABS: BASO % 0.6 % (0.0-1.0); EOS # 0.2 10*3/uL (0.0-0.4); EOS % 3.7 % (1.0-4.0); HEMATOCRIT 37.1 % (37.0-47.0); MEAN CELL VOLUME 93.5 fl (81.0-99.0); MEAN CORPUSCULAR HGB 31.2 pg (27.0-31.0); MEAN CORPUSCULAR HGB CONC 33.4 g/dl (33.0-37.0); MEAN PLATELET VOLUME 10.7 fl (9.6-12.3); MONO # 0.6 10*3/uL (0.1-1.0); MONO % 11.4 % (3.0-9.0); NEUT % 55.7 % (47.0-73.0); PLATELET COUNT AUTOMATED 141 10*3/uL (130-400); RED BLOOD COUNT 3.97 10*6/uL (4.10-5.10); WHITE BLOOD COUNT 5.4 10*3/uL (4.8-10.8)
[2024-09-09 06:57] LABS: BILIRUBIN Negative (Negative); BLOOD Negative (Negative); CLARITY Clear (Clear); COLOR Yellow (Yellow); GLUCOSE 3+ (Negative); KETONE Negative (Negative); LEUKO ESTERASE Trace (Negative); NITRITE Negative (Negative); PH 6.5 (4.5-8.0)
[2024-09-09] MEDS ORDERED: FOAM BANDAGE 5X5 T ONE (07:13)
[2024-09-09] MEDS ORDERED: LEPTOSPERMUM HONEY 4 X 5 INCH WOUND DRESSING T ONE (07:13)
[2024-09-09 08:00] VITALS: BP 137/61
[2024-09-09] MEDS ORDERED: Meropenem 50 ML IV SCH (08:00)
[2024-09-09 09:00] LABS: RBC 0-2 rbc/hpf (0-2)
[2024-09-09 12:00] VITALS: BP 147/60
[2024-09-09 16:00] VITALS: BP 121/56
[2024-09-09 20:00] VITALS: BP 140/53
[2024-09-10] VITALS: BP 110/49
[2024-09-10] MEDS ORDERED: FOAM BANDAGE 5X5 T ONE ×2 (01:40→13:07)
[2024-09-10 06:16] LABS: BASO % 0.7 % (0.0-1.0); EOS # 0.2 10*3/uL (0.0-0.4); HEMATOCRIT 35.8 % (37.0-47.0); MEAN CELL VOLUME 94.5 fl (81.0-99.0); MEAN CORPUSCULAR HGB 30.6 pg (27.0-31.0); MEAN CORPUSCULAR HGB CONC 32.4 g/dl (33.0-37.0); MEAN PLATELET VOLUME 10.9 fl (9.6-12.3); MONO # 0.4 10*3/uL (0.1-1.0); MONO % 9.5 % (3.0-9.0); NEUT # 2.4 10*3/uL (2.3-7.9); NEUT % 55.8 % (47.0-73.0); PLATELET COUNT AUTOMATED 119 10*3/uL (130-400); RED BLOOD COUNT 3.79 10*6/uL (4.10-5.10); WHITE BLOOD COUNT 4.3 10*3/uL (4.8-10.8)
[2024-09-10 07:18] LABS: BUN 16 mg/dl (9-23); CHLORIDE 104 mmol/L (98-107); POTASSIUM 3.8 mmol/L (3.4-5.1)
[2024-09-10 08:00] VITALS: BP 137/71
[2024-09-10 12:00] VITALS: BP 142/70
[2024-09-10] MEDS ORDERED: FOAM BANDAGE 1 EACH BANDAGE T ONE (13:07)
[2024-09-10] MEDS ORDERED: HEEL PROTECTOR DEVICE ONE (13:07)
[2024-09-10] MEDS ORDERED: CHAIR CUSHION DEVICE ONE (13:07)
[2024-09-10] MEDS ORDERED: LEPTOSPERMUM HONEY 4 X 5 INCH WOUND DRESSING T ONE (13:08)
[2024-09-10 16:00] VITALS: BP 146/69
[2024-09-10 20:00] VITALS: BP 118/76
[2024-09-10] MEDS ORDERED: Insulin Glargine, Recombinan 1 UNIT/0.01 ML SC SCH (22:00)
[2024-09-10] MEDS ORDERED: ERTAPENEM1 GM IV (23:07)
[2024-09-11] VITALS: BP 115/53
[2024-09-11 06:47] LABS: BASO % 0.8 % (0.0-1.0); EOS # 0.2 10*3/uL (0.0-0.4); HEMATOCRIT 36.3 % (37.0-47.0); MEAN CELL VOLUME 93.1 fl (81.0-99.0); MEAN CORPUSCULAR HGB 30.8 pg (27.0-31.0); MEAN CORPUSCULAR HGB CONC 33.1 g/dl (33.0-37.0); MEAN PLATELET VOLUME 11.1 fl (9.6-12.3); MONO # 0.4 10*3/uL (0.1-1.0); MONO % 10.6 % (3.0-9.0); NEUT # 2.3 10*3/uL (2.3-7.9); NEUT % 59.4 % (47.0-73.0); PLATELET COUNT AUTOMATED 112 10*3/uL (130-400); RED CELL DISTRI WIDTH 12.1 % (0-14.5); WHITE BLOOD COUNT 3.8 10*3/uL (4.8-10.8)
[2024-09-11 06:55] LABS: BUN 18 mg/dl (9-23); CHLORIDE 105 mmol/L (98-107); POTASSIUM 4.7 mmol/L (3.4-5.1)
[2024-09-11 08:00] VITALS: BP 107/39
[2024-09-11 12:00] VITALS: BP 109/41
[2024-09-11 16:00] VITALS: BP 141/45
[2024-09-11] MEDS ORDERED: FOAM BANDAGE 5X5 T ONE (16:22)
[2024-09-11] MEDS ORDERED: LEPTOSPERMUM HONEY 4 X 5 INCH WOUND DRESSING T ONE (16:22)
[2024-09-11] MEDS ORDERED: FOAM BANDAGE 1 EACH BANDAGE T ONE (16:23)
[2024-09-11 20:00] VITALS: BP 143/57
[2024-09-12] VITALS: BP 140/54
[2024-09-12 06:33] LABS: BASO % 0.7 % (0.0-1.0); EOS # 0.2 10*3/uL (0.0-0.4); EOS % 4.1 % (1.0-4.0); HEMATOCRIT 35.8 % (37.0-47.0); MEAN CELL VOLUME 95.2 fl (81.0-99.0); MEAN CORPUSCULAR HGB 30.9 pg (27.0-31.0); MEAN CORPUSCULAR HGB CONC 32.4 g/dl (33.0-37.0); MEAN PLATELET VOLUME 10.7 fl (9.6-12.3); MONO # 0.4 10*3/uL (0.1-1.0); MONO % 8.5 % (3.0-9.0); NEUT # 2.5 10*3/uL (2.3-7.9); NEUT % 61.9 % (47.0-73.0); PLATELET COUNT AUTOMATED 115 10*3/uL (130-400); RED BLOOD COUNT 3.76 10*6/uL (4.10-5.10); RED CELL DISTRI WIDTH 12.1 % (0-14.5); WHITE BLOOD COUNT 4.1 10*3/uL (4.8-10.8)
[2024-09-12 06:41] LABS: BUN 15 mg/dl (9-23); CHLORIDE 108 mmol/L (98-107); POTASSIUM 4.2 mmol/L (3.4-5.1)
[2024-09-12 08:00] VITALS: BP 125/60
[2024-09-12 12:00] VITALS: BP 174/90
[2024-09-12 15:44] VITALS: BP 119/87
[2024-09-12 20:00] VITALS: BP 118/50
[2024-09-12] MEDS ORDERED: FOAM BANDAGE 5X5 T ONE (20:28)
[2024-09-12] MEDS ORDERED: FOAM BANDAGE 1 EACH BANDAGE T ONE (20:28)
[2024-09-13] VITALS: BP 121/68; BP 149/67
[2024-09-13 06:16] LABS: BASO % 0.5 % (0.0-1.0); EOS # 0.2 10*3/uL (0.0-0.4); EOS % 4.3 % (1.0-4.0); MEAN CELL VOLUME 95.6 fl (81.0-99.0); MEAN CORPUSCULAR HGB 30.5 pg (27.0-31.0); MEAN CORPUSCULAR HGB CONC 31.9 g/dl (33.0-37.0); MEAN PLATELET VOLUME 10.5 fl (9.6-12.3); MONO # 0.4 10*3/uL (0.1-1.0); MONO % 9.9 % (3.0-9.0); NEUT # 2.6 10*3/uL (2.3-7.9); NEUT % 58.1 % (47.0-73.0); PLATELET COUNT AUTOMATED 116 10*3/uL (130-400); RED BLOOD COUNT 3.87 10*6/uL (4.10-5.10); RED CELL DISTRI WIDTH 12.2 % (0-14.5); WHITE BLOOD COUNT 4.4 10*3/uL (4.8-10.8)
[2024-09-13 06:35] LABS: BUN 15 mg/dl (9-23); CHLORIDE 108 mmol/L (98-107); POTASSIUM 3.9 mmol/L (3.4-5.1)
[2024-09-13 08:00] VITALS: BP 136/64
[2024-09-13] MEDS ORDERED: VANCOMYCIN/WATER FOR INJ (PEG) 350 ML IV SCH (10:00)
[2024-09-13] MEDS ORDERED: HYDROCODONE-AC1 EAC1 PO (11:33)
[2024-09-13] MEDS ORDERED: ERTAPENEM1 GM IV (11:45)
[2024-09-13 12:00] VITALS: BP 118/85
[2024-09-13 15:51] VITALS: BP 135/88
== END 2024-09-13 15:36 | DRG 602 ==
LOC: ED 12:11 → 5E 13:14 → EDHOLD 13:14 → 5E 19:43
PROVIDERS: Emergency Medicine; Internal Medicine Infectious Disease; Student in an Organized Health Care Education/Training Program; ADMIT Internal Medicine; ATTEND Internal Medicine
PROC: 05HB33Z Insertion of Infusion Device into Right Basilic Vein, Percutaneous Approach (ICD-10-PCS; 2024-09-09)
PROC: B54MZZA Ultrasonography of Right Upper Extremity Veins, Guidance (ICD-10-PCS; 2024-09-09)
PROC: 05HY33Z Insertion of Infusion Device into Upper Vein, Percutaneous Approach (ICD-10-PCS; principal; 2024-09-13)
PROC: B54MZZA Ultrasonography of Right Upper Extremity Veins, Guidance (ICD-10-PCS; 2024-09-13)
DX: L03.116 Cellulitis of left lower limb (principal); E43 Unspecified severe protein-calorie malnutrition; N17.0 Acute kidney failure with tubular necrosis; Z68.42 Body mass index [BMI] 45.0-49.9, adult; E11.22 Type 2 diabetes mellitus with diabetic chronic kidney disease; E87.6 Hypokalemia; S81.802A Unspecified open wound, left lower leg, initial encounter; E55.9 Vitamin D deficiency, unspecified; N18.31 Chronic kidney disease, stage 3a; I12.9 Hypertensive chronic kidney disease with stage 1 through stage 4 chronic kidney disease, or unspecified chronic kidney disease; E78.2 Mixed hyperlipidemia; F42.4 Excoriation (skin-picking) disorder; E11.42 Type 2 diabetes mellitus with diabetic polyneuropathy; L89.322 Pressure ulcer of left buttock, stage 2; L89.890 Pressure ulcer of other site, unstageable; E03.9 Hypothyroidism, unspecified; G47.33 Obstructive sleep apnea (adult) (pediatric); G43.909 Migraine, unspecified, not intractable, without status migrainosus; I87.2 Venous insufficiency (chronic) (peripheral); F51.01 Primary insomnia; L40.9 Psoriasis, unspecified; F32.A Depression, unspecified; Z79.4 Long term (current) use of insulin; Z98.51 Tubal ligation status; Z88.1 Allergy status to other antibiotic agents; Z88.5 Allergy status to narcotic agent; Z88.8 Allergy status to other drugs, medicaments and biological substances; Z79.1 Long term (current) use of non-steroidal anti-inflammatories (NSAID); Z79.899 Other long term (current) drug therapy; Z80.1 Family history of malignant neoplasm of trachea, bronchus and lung; Z82.49 Family history of ischemic heart disease and other diseases of the circulatory system; Z79.51 Long term (current) use of inhaled steroids

== ENCOUNTER → 2024-09-16 | Outpatient (CLI) | payer OTHER, MEDICAID ==
[~2024-09-16] MED LIST changes: +'CYTOTEC200 MCG PO; +AIRSUPRA 90-810.7 GM INH; +ALDACTONE25 M1 PO; +AMITRIPTYLINE100 M1 PO; +ATENOLOL50 M1 PO; +ATORVASTATIN CA40 M1 PO; +CALCIPOTRIENE60 G3 T; +CALMOSEPTINE OI71 GM T; +COL-RITE100 M1 PO; +DAILY VALUE1 EACH PO; +DICYCLOMINE HYD10 MG PO; +ERTAPENEM1 GM IV; +FLOMAX0.4 MG PO; +HYDROCODONE-AC1 EAC1 PO; +HYDROXYZINE HCL25 MG PO; +INSULIN AS100 UNIT/2 SQ; +KLOR-CON M2020 ME1 PO; +LACTULOSE20 GM PO; +LEVOXYL88 MCG PO; +MONTELUKAST SOD10 MG PO; +NEURONTIN100 MG PO; +Ondansetron4 MG PO; +SSD25 GM T; +TRULICITY4.5 MG/0.5 SQ; +VENLAFAXINE HY150 M2 PO; +Zaroxolyn,Diul2.5 MG PO
== END | disposition home or self-care (01) ==
LOC: WOUNDCARE 04:06
PROVIDERS: ATTEND Nurse Practitioner Family
DX: L89.893 Pressure ulcer of other site, stage 3 (principal); L89.222 Pressure ulcer of left hip, stage 2; L03.116 Cellulitis of left lower limb; S81.802D Unspecified open wound, left lower leg, subsequent encounter; I87.2 Venous insufficiency (chronic) (peripheral); I10 Essential (primary) hypertension; E11.9 Type 2 diabetes mellitus without complications; E78.5 Hyperlipidemia, unspecified; F42.4 Excoriation (skin-picking) disorder; Z98.51 Tubal ligation status; Z98.890 Other specified postprocedural states; Z79.4 Long term (current) use of insulin; Z79.84 Long term (current) use of oral hypoglycemic drugs; X58.XXXD Exposure to other specified factors, subsequent encounter

== ENCOUNTER → 2024-09-23 | Outpatient (CLI) | payer OTHER, MEDICAID | END | disposition home or self-care (01) | LOC: WOUNDCARE 01:19 | PROVIDERS: ATTEND Nurse Practitioner Family | DX: L89.893 Pressure ulcer of other site, stage 3 (principal); L89.222 Pressure ulcer of left hip, stage 2; S81.802D Unspecified open wound, left lower leg, subsequent encounter; L03.116 Cellulitis of left lower limb; I87.2 Venous insufficiency (chronic) (peripheral); E11.9 Type 2 diabetes mellitus without complications; E78.5 Hyperlipidemia, unspecified; I10 Essential (primary) hypertension; Z98.51 Tubal ligation status; Z98.890 Other specified postprocedural states; Z79.84 Long term (current) use of oral hypoglycemic drugs; Z79.899 Other long term (current) drug therapy; X58.XXXD Exposure to other specified factors, subsequent encounter ==

== ENCOUNTER → 2024-09-30 | Outpatient (CLI) | payer MEDICARE, OTHER | END | disposition home or self-care (01) | LOC: WOUNDCARE 01:37 | PROVIDERS: ATTEND Nurse Practitioner Family | DX: L89.893 Pressure ulcer of other site, stage 3 (principal); L89.222 Pressure ulcer of left hip, stage 2; S81.802D Unspecified open wound, left lower leg, subsequent encounter; L03.116 Cellulitis of left lower limb; I87.2 Venous insufficiency (chronic) (peripheral); E11.9 Type 2 diabetes mellitus without complications; E78.5 Hyperlipidemia, unspecified; I10 Essential (primary) hypertension; F42.4 Excoriation (skin-picking) disorder; Z98.51 Tubal ligation status; Z98.890 Other specified postprocedural states; Z79.84 Long term (current) use of oral hypoglycemic drugs; Z79.4 Long term (current) use of insulin; Z79.899 Other long term (current) drug therapy; X58.XXXD Exposure to other specified factors, subsequent encounter ==

== ENCOUNTER → 2024-10-07 | Outpatient (CLI) | payer MEDICARE, OTHER | LOC: WOUNDCARE 01:02 | PROVIDERS: ATTEND Nurse Practitioner Family | DX: L89.893 Pressure ulcer of other site, stage 3 (principal); L89.222 Pressure ulcer of left hip, stage 2; S81.802D Unspecified open wound, left lower leg, subsequent encounter; L03.116 Cellulitis of left lower limb; I87.2 Venous insufficiency (chronic) (peripheral); I10 Essential (primary) hypertension; E55.9 Vitamin D deficiency, unspecified; E78.5 Hyperlipidemia, unspecified; F42.4 Excoriation (skin-picking) disorder; Z98.51 Tubal ligation status; Z98.890 Other specified postprocedural states; Z79.84 Long term (current) use of oral hypoglycemic drugs; Z79.4 Long term (current) use of insulin; Z79.899 Other long term (current) drug therapy; X58.XXXD Exposure to other specified factors, subsequent encounter ==

== ENCOUNTER → 2024-10-14 | Outpatient (CLI) | payer MEDICARE, OTHER | LOC: WOUNDCARE 00:40 | PROVIDERS: ATTEND Nurse Practitioner Family | DX: L89.893 Pressure ulcer of other site, stage 3 (principal); L89.222 Pressure ulcer of left hip, stage 2; L03.116 Cellulitis of left lower limb; S81.802D Unspecified open wound, left lower leg, subsequent encounter; I87.2 Venous insufficiency (chronic) (peripheral); E11.9 Type 2 diabetes mellitus without complications; E78.5 Hyperlipidemia, unspecified; I10 Essential (primary) hypertension; Z98.51 Tubal ligation status; Z98.890 Other specified postprocedural states; Z79.84 Long term (current) use of oral hypoglycemic drugs; Z79.4 Long term (current) use of insulin; Z79.899 Other long term (current) drug therapy; X58.XXXD Exposure to other specified factors, subsequent encounter ==

== ENCOUNTER → 2024-10-20 | Outpatient (CLI) | payer MEDICARE, OTHER | END | disposition home or self-care (01) | LOC: WOUNDCARE 02:33 | PROVIDERS: ATTEND Nurse Practitioner Family | DX: L89.893 Pressure ulcer of other site, stage 3 (principal); L89.222 Pressure ulcer of left hip, stage 2; S81.802D Unspecified open wound, left lower leg, subsequent encounter; L03.116 Cellulitis of left lower limb; I87.2 Venous insufficiency (chronic) (peripheral); E11.9 Type 2 diabetes mellitus without complications; I10 Essential (primary) hypertension; E78.5 Hyperlipidemia, unspecified; F42.4 Excoriation (skin-picking) disorder; Z98.51 Tubal ligation status; Z98.890 Other specified postprocedural states; Z79.84 Long term (current) use of oral hypoglycemic drugs; Z79.4 Long term (current) use of insulin; Z79.899 Other long term (current) drug therapy; X58.XXXD Exposure to other specified factors, subsequent encounter ==

== ENCOUNTER → 2024-10-28 | Outpatient (CLI) | payer MEDICARE, OTHER | LOC: WOUNDCARE 02:34 | PROVIDERS: ATTEND Nurse Practitioner Family | DX: L89.893 Pressure ulcer of other site, stage 3 (principal); L89.222 Pressure ulcer of left hip, stage 2; S81.802D Unspecified open wound, left lower leg, subsequent encounter; L03.116 Cellulitis of left lower limb; I87.2 Venous insufficiency (chronic) (peripheral); E11.9 Type 2 diabetes mellitus without complications; E78.5 Hyperlipidemia, unspecified; I10 Essential (primary) hypertension; F42.4 Excoriation (skin-picking) disorder; Z98.51 Tubal ligation status; Z98.890 Other specified postprocedural states; Z79.4 Long term (current) use of insulin; Z79.84 Long term (current) use of oral hypoglycemic drugs; Z79.899 Other long term (current) drug therapy; X58.XXXD Exposure to other specified factors, subsequent encounter ==

== ENCOUNTER → 2024-11-04 | Outpatient (CLI) | payer MEDICARE, OTHER | LOC: WOUNDCARE 01:17 | PROVIDERS: ATTEND Nurse Practitioner Family | DX: L89.893 Pressure ulcer of other site, stage 3 (principal); L89.222 Pressure ulcer of left hip, stage 2; S81.802D Unspecified open wound, left lower leg, subsequent encounter; L03.116 Cellulitis of left lower limb; E11.9 Type 2 diabetes mellitus without complications; I10 Essential (primary) hypertension; I87.2 Venous insufficiency (chronic) (peripheral); E78.5 Hyperlipidemia, unspecified; F42.4 Excoriation (skin-picking) disorder; Z98.51 Tubal ligation status; Z98.890 Other specified postprocedural states; Z79.84 Long term (current) use of oral hypoglycemic drugs; Z79.4 Long term (current) use of insulin; Z79.899 Other long term (current) drug therapy; X58.XXXD Exposure to other specified factors, subsequent encounter ==

== ENCOUNTER → 2024-11-10 | Outpatient (CLI) | payer MEDICARE, OTHER | END | disposition home or self-care (01) | LOC: WOUNDCARE 00:45 | PROVIDERS: ATTEND Nurse Practitioner Family | DX: L89.893 Pressure ulcer of other site, stage 3 (principal); L89.222 Pressure ulcer of left hip, stage 2; S81.802D Unspecified open wound, left lower leg, subsequent encounter; L03.116 Cellulitis of left lower limb; I87.2 Venous insufficiency (chronic) (peripheral); E11.9 Type 2 diabetes mellitus without complications; I10 Essential (primary) hypertension; E78.5 Hyperlipidemia, unspecified; F42.4 Excoriation (skin-picking) disorder; Z98.51 Tubal ligation status; Z98.890 Other specified postprocedural states; Z79.4 Long term (current) use of insulin; Z79.84 Long term (current) use of oral hypoglycemic drugs; Z79.899 Other long term (current) drug therapy ==

== ENCOUNTER → 2024-11-16 | Outpatient (CLI) | payer MEDICARE, OTHER | END | disposition home or self-care (01) | LOC: WOUNDCARE 01:13 | PROVIDERS: ATTEND Nurse Practitioner Family | DX: L89.893 Pressure ulcer of other site, stage 3 (principal); L89.222 Pressure ulcer of left hip, stage 2; S81.802D Unspecified open wound, left lower leg, subsequent encounter; L03.116 Cellulitis of left lower limb; I87.2 Venous insufficiency (chronic) (peripheral); I10 Essential (primary) hypertension; E11.9 Type 2 diabetes mellitus without complications; E78.5 Hyperlipidemia, unspecified; F42.4 Excoriation (skin-picking) disorder; Z98.51 Tubal ligation status; X58.XXXD Exposure to other specified factors, subsequent encounter ==

== ENCOUNTER → 2024-11-24 | Outpatient (CLI) | payer MEDICARE, OTHER ==
[~2024-11-24] MED LIST changes: +CYCLOBENZAPRINE5 M3 PO; +DEXCOM G7 SENS1 EACH MC
== END | disposition home or self-care (01) ==
LOC: WOUNDCARE 02:02
PROVIDERS: ATTEND Nurse Practitioner Family
DX: L89.893 Pressure ulcer of other site, stage 3 (principal); L89.222 Pressure ulcer of left hip, stage 2; S81.802D Unspecified open wound, left lower leg, subsequent encounter; L03.116 Cellulitis of left lower limb; I87.2 Venous insufficiency (chronic) (peripheral); F42.4 Excoriation (skin-picking) disorder; I10 Essential (primary) hypertension; E78.5 Hyperlipidemia, unspecified; Z98.51 Tubal ligation status; Z98.890 Other specified postprocedural states; Z79.4 Long term (current) use of insulin; Z79.899 Other long term (current) drug therapy; X58.XXXD Exposure to other specified factors, subsequent encounter

== ENCOUNTER 2024-12-15 17:54 | Emergency (ER) | payer MEDICARE ==
[~2024-12-15] VITALS: Ht 167.6 cm; Wt 126.6 kg
[2024-12-15 18:35] LABS: BASO # 0.1 10*3/uL (0.0-0.1); BASO % 0.8 % (0.0-1.0); EOS # 0.3 10*3/uL (0.0-0.4); EOS % 4.3 % (1.0-4.0); MEAN CELL VOLUME 92.6 fl (81.0-99.0); MEAN CORPUSCULAR HGB 30.5 pg (27.0-31.0); MEAN PLATELET VOLUME 10.3 fl (9.6-12.3); MONO # 0.7 10*3/uL (0.1-1.0); MONO % 10.5 % (3.0-9.0); NEUT # 3.6 10*3/uL (2.3-7.9); NEUT % 55.2 % (47.0-73.0); NUCLEATED RED BLOOD CELL 0.0 % (0.0-0.0); NUCLEATED RED BLOOD CELL 0.0 10*3/uL (0.0-0.0); PLATELET COUNT AUTOMATED 172 10*3/uL (130-400); RED CELL DISTRI WIDTH 13.6 % (0-14.5)
[2024-12-15 18:52] LABS: ACT PARTIAL THROMBO TIME 33.6 SECONDS (20.0-32.1)
[2024-12-15 18:55] LABS: BUN 33.0 mg/dl (9-23); SGPT/ALT 129.0 U/L (5-49)
[2024-12-15] MEDS ORDERED: Iodixanol 320 100 ML VIAL IV ONE (19:30)
[2024-12-15] MEDS ORDERED: Iodixanol 320 100 ML VIAL ONE (19:48)
[2024-12-15] MEDS ORDERED: METHOCARBAMOL500 M1 PO (20:03)
[2024-12-15] MEDS ORDERED: INSULIN AS100 UNIT/3 SQ ×2 (20:03→20:04)
[2024-12-15] MEDS ORDERED: OXYCODONE HCL5 MG PO (20:04)
== END 2024-12-15 22:32 ==
LOC: ED 17:54
PROVIDERS: Internal Medicine
DX: K74.60 Unspecified cirrhosis of liver (principal); R74.01 Elevation of levels of liver transaminase levels; I12.9 Hypertensive chronic kidney disease with stage 1 through stage 4 chronic kidney disease, or unspecified chronic kidney disease; E11.22 Type 2 diabetes mellitus with diabetic chronic kidney disease; N18.9 Chronic kidney disease, unspecified; N17.9 Acute kidney failure, unspecified; E11.65 Type 2 diabetes mellitus with hyperglycemia; K59.00 Constipation, unspecified; E87.6 Hypokalemia; E43 Unspecified severe protein-calorie malnutrition; G43.909 Migraine, unspecified, not intractable, without status migrainosus; F32.A Depression, unspecified; Z79.4 Long term (current) use of insulin; Z79.899 Other long term (current) drug therapy; Z88.1 Allergy status to other antibiotic agents; Z88.5 Allergy status to narcotic agent; Z88.6 Allergy status to analgesic agent; Z88.8 Allergy status to other drugs, medicaments and biological substances; Z98.51 Tubal ligation status; Z98.890 Other specified postprocedural states